=== PATIENT | male | born 1930 | race African-American/Black ===

== ENCOUNTER 2017-02-19 05:44 | Inpatient (IN) | payer MEDICARE, OTHER ==
[2017-02-19] VITALS (10 sets, daily range): BP systolic 130–177; BP diastolic 70–82; PULSE 46–95; TEMP 97.6–98.1
[~2017-02-19] VITALS: Ht 167.6 cm; Wt 60.1 kg
[2017-02-19 07:19] LABS: CALCIUM 9.3 mg/dL (8.4-10.2); POTASSIUM 3.4 mmol/L (3.4-5.0)
[2017-02-19 07:35] LABS: CREATININE, serum 4.48 mg/dL (0.66-1.25)
[2017-02-19] MEDS ORDERED: IMDUR 30MG30 MG/TAB PO (08:05)
[2017-02-19] MEDS ORDERED: XANAX 0.5MG0.5 MG PO (08:09)
[2017-02-19] MEDS ORDERED: PROTONIX20 MG PO (08:10)
[2017-02-19] MEDS ORDERED: FLOMAX 0.40.4 MG/CAP PO (08:10)
[2017-02-19] MEDS ORDERED: PLAVIX 75MG TAB75 MG PO (08:10)
[2017-02-19] MEDS ORDERED: LIPITOR 40MG TA40 MG PO (08:11)
[2017-02-19] MEDS ORDERED: LOPRESSOR 550 MG/TAB PO (08:12)
[2017-02-19] MEDS ORDERED: THEO-24 30300 MG/CAP PO (08:13)
[2017-02-19] MEDS ORDERED: ASPIRIN 32325 MG/TAB PO (08:13)
[2017-02-19] MEDS ORDERED: NORVASC 5MG5 MG/TAB PO (08:15)
[2017-02-19] MEDS ORDERED: NEXIUM 40MG40 MG PO (08:25)
[2017-02-19] MEDS ORDERED: ALTACE 10MG TAB10 MG PO (08:26)
[2017-02-19] MEDS ORDERED: TRUSOPT OCUMETE10 ML IO (08:27)
[2017-02-19] MEDS ORDERED: ALPHAGAN OPHTH D5 ML OU (08:29)
[2017-02-19] MEDS ORDERED: ATROVENT INHALE14 GM IH (08:32)
[2017-02-20 06:01] VITALS: BP 154/77; PULSE 87; TEMP 98.7
[2017-02-20 09:49] VITALS: BP 155/78; PULSE 77; TEMP 97.9
[2017-02-20 12:07] LABS: ALBUMIN 3.6 gm/dL (3.5-5.0); CALCIUM 9.4 mg/dL (8.4-10.2); CREATININE, serum 3.79 mg/dL (0.66-1.25); POTASSIUM 3.7 mmol/L (3.4-5.0)
[2017-02-20 12:18] LABS: MEAN CELL VOLUME 88 fl (80.0-100.0); MEAN CORPUSCULAR HGB CONC 33 g/dl (33.0-37.0); MEAN PLATELET VOLUME 11.8 fl (7.4-10.4); PLATELET COUNT 118 K/mm3 (130-400); RED BLOOD COUNT 3.61 M/mm3 (4.20-5.60); REDCELL DISTRIBUTION WIDTH-CV 15.3 % (11.5-14.5); WHITE BLOOD COUNT 8.7 K/mm3 (4.8-10.8)
[2017-02-20 12:28] LABS: HEMATOCRIT 31.8 % (42.0-52.0); HEMOGLOBIN 10.5 g/dl (13.5-18.0); MEAN CORPUSCULAR HEMOGLOBIN 29 pg (27.0-31.0)
[2017-02-20 13:46] VITALS: BP 134/85; PULSE 95; TEMP 97.9
[2017-02-20 18:10] VITALS: BP 136/77; PULSE 80; TEMP 97.8
[2017-02-21 05:48] VITALS: BP 146/65; PULSE 69; TEMP 98.4
[2017-02-21 07:52] LABS: ALBUMIN 3.4 gm/dL (3.5-5.0); CALCIUM 9.2 mg/dL (8.4-10.2); PHOSPHOROUS 4.7 mg/dL (2.5-4.5); POTASSIUM 3.5 mmol/L (3.4-5.0)
[2017-02-21 08:14] LABS: CREATININE, serum 3.94 mg/dL (0.66-1.25)
[2017-02-21 11:42] VITALS: BP 126/64; PULSE 84; TEMP 98
[2017-02-21 13:37] VITALS: BP 120/54; PULSE 66; TEMP 97.8
[2017-02-21 17:18] VITALS: BP 118/59; PULSE 68; TEMP 97.7
[2017-02-21 20:48] VITALS: BP 130/61; PULSE 69; TEMP 98
[2017-02-22] VITALS (7 sets, daily range): BP systolic 107–189; BP diastolic 49–90; PULSE 67–102; TEMP 97.8–98.9
[2017-02-22 08:14] LABS: ALBUMIN 2.9 gm/dL (3.5-5.0); CALCIUM 8.9 mg/dL (8.4-10.2); CREATININE, serum 3.77 mg/dL (0.66-1.25); PHOSPHOROUS 3.6 mg/dL (2.5-4.5); POTASSIUM 3.3 mmol/L (3.4-5.0)
[2017-02-22 16:27] LABS: TROPONIN-I 0.04 ng/mL (0.000-0.034)
[2017-02-23 02:27] VITALS: BP 141/63; PULSE 81; TEMP 98.2
[2017-02-23 04:17] VITALS: BP 139/72; PULSE 103; TEMP 98.7
[2017-02-23 06:00] VITALS: BP 113/75; PULSE 113; TEMP 97.7
[2017-02-23 06:34] LABS: ALBUMIN 3.6 gm/dL (3.5-5.0); CALCIUM 9.5 mg/dL (8.4-10.2); CREATININE, serum 3.61 mg/dL (0.66-1.25); PHOSPHOROUS 2.7 mg/dL (2.5-4.5); POTASSIUM 3.9 mmol/L (3.4-5.0)
[2017-02-23 08:00] VITALS: BP 113/75; PULSE 98; TEMP 98.7
[2017-02-23 11:41] VITALS: BP 113/76; PULSE 110; TEMP 98.6
== END 2017-02-23 14:16 | disposition short-term general hospital (02) | DRG 713 ==
LOC: SDCO 05:44 → SURG 10:40 → SDCO 13:00 → SURG 13:00 → IMCU 02-23 04:58
PROVIDERS: Nurse Anesthetist, Certified Registered; Urology
PROC: 0VB08ZZ Excision of Prostate, Via Natural or Artificial Opening Endoscopic (ICD-10-PCS; principal; 2017-02-19 08:30)
PROC: 0T788DZ Dilation of Bilateral Ureters with Intraluminal Device, Via Natural or Artificial Opening Endoscopic (ICD-10-PCS; 2017-02-19 08:30)
DX: N40.1 Benign prostatic hyperplasia with lower urinary tract symptoms (principal); F05 Delirium due to known physiological condition; N13.1 Hydronephrosis with ureteral stricture, not elsewhere classified; I12.0 Hypertensive chronic kidney disease with stage 5 chronic kidney disease or end stage renal disease; N18.4 Chronic kidney disease, stage 4 (severe); N13.8 Other obstructive and reflux uropathy; I69.351 Hemiplegia and hemiparesis following cerebral infarction affecting right dominant side; I25.110 Atherosclerotic heart disease of native coronary artery with unstable angina pectoris; C61 Malignant neoplasm of prostate; J44.9 Chronic obstructive pulmonary disease, unspecified; D63.1 Anemia in chronic kidney disease; Z95.5 Presence of coronary angioplasty implant and graft
CPT/HCPCS: 99223; 99231-AI; C1769; C2617; J0360; J0690; J1630; J1940; J2060; J2250; J2370; J2405; J2704; J3010; J3480; J7030